=== PATIENT | female | born 1990 | race Asian ===

== ENCOUNTER 2017-07-23 08:39 | Emergency (ER) | payer MEDICAID ==
[2017-07-23 08:51] VITALS: BP 125/75
== END 2017-07-23 09:56 | disposition home or self-care (01) ==
LOC: ED 08:39
DX: L30.9 Dermatitis, unspecified (principal)

== ENCOUNTER 2017-08-05 20:38 | Emergency (ER) | payer MEDICAID ==
[~2017-08-05] VITALS: Ht 160 cm; Wt 79.4 kg
[2017-08-05 20:49] VITALS: BP 125/83; Ht 160 cm; Wt 79.4 kg
== END 2017-08-06 03:39 | disposition home or self-care (01) ==
LOC: ED 20:38
DX: O26.892 Other specified pregnancy related conditions, second trimester (principal); B34.9 Viral infection, unspecified